=== PATIENT | male | born 1965 | race Caucasian/White ===

== ENCOUNTER 2024-03-29 02:08 | Observation (INO) | payer SELFPAY ==
[2024-03-29] VITALS (26 sets, daily range): BP systolic 132–192; BP diastolic 76–162; PULSE 90–115; RESP 10–30; TEMP 36.5–36.9; O2SAT 74–98; BMI 36.9; BMI 36.6
--- NOTE | 2024-03-29 02:14 | W.ED.SOB ---
HPI - SOB/Dyspnea General: Chief Complaint: Shortness of Breath/Dyspnea Stated Complaint: SOB Time Seen by Provider: 03/29/24 02:16 History of Present Illness: HPI Narrative: Patient presents to the ER by EMS with complaints of sudden onset shortness of breath. EMS gave him 1 DuoNeb, 1 albuterol, and put him on 2 L of oxygen he said he is breathing a bit easier. O2 sat upon arrival is 91%. Patient said he was just in [facility] last week for 2 days for the exact same thing and they released him and he took 3 more days worth of steroids. Before that event he did not have any breathing problems. 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 Patient's denying any chest pain, fevers chills, Related Data Allergies Allergy/AdvReac Type Severity Reaction Status Date / Time No Known Allergies Allergy Verified 03/29/24 02:13 Review of Systems General: Reports: 10 or more systems reviewed and unremarkable except in HPI and below Physical Exam Const: COMMON NORMALS: no acute distress, average body habitus, patient oriented x3, no limitations, healthy appearing, alert and well nourished HENMT: COMMON NORMALS: normocephalic, atraumatic, hearing grossly normal bilaterally, external ears normal, Normal external nose present and moist oral mucous membranes HEAD & SCALP: normocephalic and atraumatic NOSE: Normal external nose present EXTERNAL EAR: Yes external ears normal Neck/C-Spine: COMMON NORMALS: no JVD Chest: COMMONS NORMALS: normal inspection of the chest and normal palpation of entire chest wall Resp: COMMON NORMALS: normal respiratory effort, No retractions and No use of accessory muscles; negative for clear to auscultation bilaterally (Tachypneic diffuse bilateral wheezing) AUSCULTATION: not clear to auscultation bilaterally (Tachypneic diffuse bilateral wheezing) Cardio: COMMON NORMALS: no JVD, regular rate, regular rhythm, S1 normal heart sound present, S2 normal heart sound present, No gallops present (Cardio), No clicks present (Cardio), No murmurs present (Cardio) and No rub (Cardio) RATE: regular rate RHYTHM: regular rhythm HEART SOUNDS: S1 normal heart sound present and S2 normal heart sound present GI: COMMON NORMALS: Normal to inspection, nondistended, normoactive bowel sounds present, Soft to palpation, non-tender, No hepatosplenomegaly present and no masses PALPATION: Yes Soft to palpation and Yes No hepatosplenomegaly present Neuro: COMMON NORMALS: patient oriented x3 SENSORIUM/ORIENTATION: Yes alert Course Vital Signs: Vital signs: Vital Signs Temperature 98.1 F 03/29/24 02:09 Pulse Rate 111 H 03/29/24 03:45 Respiratory Rate 26 H 03/29/24 02:29 Blood Pressure 192/162 03/29/24 02:09 Pulse Oximetry 96 03/29/24 03:45 Oxygen Delivery Me thod Nasal Cannula 03/29/24 02:09 Oxygen Flow Rate 2 03/29/24 02:23 Fraction of Inspir ed Oxygen 35 03/29/24 03:45 MDM - SOB/Dyspnea Medical Decision Making White blood cell 17,000, ABG pH 7.34 pCO2 51, pO2 70.9, bicarb 27.4, metabolic panel unremarkable troponin delta of 2, negative for tijerina influenza and RSV, chest x-ray negative, patient very anxious has to be put on BiPAP and then had a panic attack was given 2 mg of Ativan. Appeared to be doing somewhat better however when he got up to use the restroom walked across the ruby and came back off of oxygen his saturation dropped all the way down to 73% and he becomes a little significantly more anxious. Dr. Robledo was consulted who agreed to place patient inpatient we will get a stat echo, CTA of the chest and BNP. Medical Records I reviewed the patient's medical records. Lab Data I reviewed the patient's lab results. 03/29/24 02:20 03/29/24 02:20 Labs/Radiology: Radiology Impressions Chest X-Ray 03/29/24 02:46 IMPRESSION: No acute findings. Laboratory Results WBC 17.06 10^3/uL (3.29-11.43) H 03/29/24 02:20 RBC 5.23 10^6/uL (3.85-5.65) 03/29/24 02:20 Hgb 16.00 g/dL (11.27-16.99) 03/29/24 02:20 Hct 47.2 % (37-53) 03/29/24 02:20 MCV 90.2 fl (82-101) 03/29/24 02:20 MCH 30.6 pg (27-33) 03/29/24 02:20 MCHC 33.9 g/dL (30-55) 03/29/24 02:20 RDW 12.2 % (12.1-15.1) 03/29/24 02:20 Plt Count 331 10^3/cmm (157-399) 03/29/24 02:20 MPV 10.0 fL (7.4-10.4) 03/29/24 02:20 Neut % (Auto) 61.1 % 03/29/24 02:20 Lymph % (Auto) 22.0 % 03/29/24 02:20 [place] % (Auto) 10.2 % 03/29/24 02:20 Eos % (Auto) 5.5 % 03/29/24 02:20 Baso % (Auto) 0.8 % 03/29/24 02:20 Neut # (Auto) 10.43 10^3/uL (1.8-7.7) H 03/29/24 02:20 Lymph # (Auto) 3.8 10^3/uL (0.8-4.8) 03/29/24 02:20 [place] # (Auto) 1.7 10^3/uL (0.2-0.9) H 03/29/24 02:20 Eos # (Auto) 0.9 10^3/uL (0.0-0.8) H 03/29/24 02:20 Baso # (Auto) 0.1 10^3/uL (0.0-0.1) 03/29/24 02:20 Nucleated RBC % (auto) 0 % 03/29/24 02:20 Nucleated RBCs # 0.0 /100WBC 03/29/24 02:20 D-Dimer 0.58 ug/mLFEU (0-0.59) 03/29/24 02:20 Specimen Type Arterial 03/29/24 02:27 Sample Site Radial, right 03/29/24 02:27 ABG pH 7.34 (7.35-7.45) L 03/29/24 02:27 ABG pCO2 51.2 mmHg (35-45) H 03/29/24 02:27 ABG pO2 70.9 mmHg (80.0-100.0) L 03/29/24 02:27 ABG PO2/FiO2 Ratio 253 03/29/24 02:27 ABG HCO3 27.4 mmol/L (22-26) H 03/29/24 02:27 ABG O2 Saturation 93.3 03/29/24 02:27 ABG Base Excess 0.5 mmol/L (-2.0-2.0) 03/29/24 02:27 Richar Test Pos 03/29/24 02:27 A-a O2 Gradient 8.8 mmHg (5-10) 03/29/24 02:27 Hematocrit 50.0 % (42-52) 03/29/24 02:27 Hgb O2 Saturation 92.6 % (95-100) L 03/29/24 02:27 Carboxyhemoglobin 0.6 %THgb (0.4-20.1) 03/29/24 02:27 Methemoglobin 0.2 % (0.4-1.5) L 03/29/24 02:27 Total Hemoglobin 16.3 g/dL (14-18) 03/29/24 02:27 Sodium 143.0 mmol/L (131-143) 03/29/24 02:27 Potassium 3.9 mmol/L (3.5-5.0) 03/29/24 02:27 Glucose 139.0 mg/dL (70-115) H 03/29/24 02:27 Ionized Calcium 1.2 mmol/L (1.1-1.4) 03/29/24 02:27 O2 Delivery Device Nc 03/29/24 02:27 O2 Liters/Min 2.0 % 03/29/24 02:27 FiO2 28.0 % 03/29/24 02:27 It Project Coordinator ID [id number] 03/29/24 02:27 Sodium 142 mmol/L (136-145) 03/29/24 02:20 Potassium 4.3 mmol/L (3.5-5.1) 03/29/24 02:20 Chloride 104 mmol/L (98-107) 03/29/24 02:20 Carbon Dioxide 23 mmol/L (22-29) 03/29/24 02:20 Anion Gap 19.3 (5-19) H 03/29/24 02:20 BUN 16 mg/dL (6-20) 03/29/24 02:20 Creatinine 0.7 mg/dL (0.7-1.2) 03/29/24 02:20 GFR Calculation 116.2 mL/min (90-130) 03/29/24 02:20 Glucose 148 mg/dL (65-115) H 03/29/24 02:20 Calculated Osmolality 298 mOsm/kg (285-295) H 03/29/24 02:20 Lactic Acid 1.8 mmol/L (0.5-2.2) 03/29/24 02:20 Calcium 9.1 mg/dL (8.5-10.5) 03/29/24 02:20 Total Bilirubin 0.3 mg/dL (0.15-1.2) 03/29/24 02:20 AST 25 U/L (0-40) 03/29/24 02:20 ALT 49 U/L (0-41) H 03/29/24 02:20 Alkaline Phosphatase 79 U/L (40-130) 03/29/24 02:20 Troponin T Baseline 15 ng/L (0-15) 03/29/24 02:20 Troponin T 120 Minute 12.65 ng/L (0-15) 03/29/24 04:05 Delta Troponin T -2.35 ABS# (0-10) L 03/29/24 04:05 Total Protein 7.3 g/dL (6.6-8.7) 03/29/24 02:20 Albumin 4.2 g/dL (3.5-5.2) 03/29/24 02:20 Globulin 3.1 g/dL (1.3-4.6) 03/29/24 02:20 Procalcitonin 0.04 ng/mL (0-0.5) 03/29/24 02:20 Coronavirus (PCR) Negative (Negative) 03/29/24 02:30 Influenza A (PCR) Negative (Negative) 03/29/24 02:30 Influenza Type B (PCR) Negative (Negative) 03/29/24 02:30 RSV (PCR) Negative (Negative) 03/29/24 02:30 All radiology interpretation(s) finalized by discharge Discharge Plan Discharge Patient Disposition: Admitted As Inpatient Clinical Impression: Acute hypoxic respiratory failure, Anxiety, Diabetes Condition: Stable Coding Level of Care Code ED Educational Technician for Shar Morgan
[2024-03-29] MEDS: albuterol 2.5 mg/3 mL Neb INHALATION (02:19)
[2024-03-29 02:26] LABS: Basophils # 0.1 10^3/uL (0.0-0.1); Basophils % 0.8 %; Eosinophils # 0.9 10^3/uL (0.0-0.8); Eosinophils % 5.5 %; Hematocrit 47.2 % (37-53); Lymphocytes # 3.8 10^3/uL (0.8-4.8); Mean Corpuscular HGB Conc 33.9 g/dL (30-55); Mean Corpuscular Hemoglobin 30.6 pg (27-33); Mean Corpuscular Volume 90.2 fl (82-101); Monocytes # 1.7 10^3/uL (0.2-0.9); Monocytes % 10.2 %; Neutrophils # 10.43 10^3/uL (1.8-7.7); Neutrophils % 61.1 %; Nucleated Red Blood Cells % 0 %; Platelet Count 331 10^3/cmm (157-399); Red Blood Count 5.23 10^6/uL (3.85-5.65); Red Cell Distribution Width 12.2 % (12.1-15.1); White Blood Count 17.06 10^3/uL (3.29-11.43)
--- NOTE | 2024-03-29 02:29 | ECG_ITS ---
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 Measurements Intervals [place] Rate: 103 P: 0 NE: 0 QRS: 62 QRSD: 91 T: 70 QT: 315 QTc: 413 Interpretive Statements ATRIAL FIBRILLATION WITH RAPID VENTRICULAR RESPONSE No previous ECG available for comparison Electronically Signed On 03-30-2024 09:34:18 FOOD PRODUCTS TESTER by Marc Jang M.D. [email or web address]
[2024-03-29 02:33] LABS: ABG PCO2 51.2 mmHg (35-45); ABG PH Result 7.34 (7.35-7.45); Base Excess ABG 0.5 mmol/L (-2.0-2.0); Blood Gas Allen Test Pos; Blood Gas Sample Type Arterial; Carboxyhemoglobin 0.6 %THgb (0.4-20.1); HCO3 ABG 27.4 mmol/L (22-26); HGB O2 Sat 92.6 % (95-100); Ionized Calcium Level - ABG 1.2 mmol/L (1.1-1.4); Methemoglobin 0.2 % (0.4-1.5); Oxygen Saturation ABG 93.3; PO2 ABG 70.9 mmHg (80.0-100.0); Potassium Level - ABG 3.9 mmol/L (3.5-5.0); Total Hemoglobin 16.3 g/dL (14-18)
[2024-03-29 02:35] LABS: Alveolar-Arterial Oxygen Gradi 8.8 mmHg (5-10); Blood Gas Operator Identificat 600455; Blood Gas Sample Site Radial, right; Oxygen Device NC; PO2 FiO2 Ratio Arterial Blood 253
[2024-03-29] MEDS: hyDRALAzine 20 mg/mL INJ 1 mL IVP (02:37)
[2024-03-29] MEDS: benzonatate 100 mg Capsule 200 MG PO (02:37)
[2024-03-29 02:43] LABS: D Dimer 0.58 ug/mLFEU (0-0.59)
[2024-03-29 02:44] LABS: Lactic Sepsis W/Reflex 1.8 mmol/L (0.5-2.2)
[2024-03-29 02:46] LABS: Troponin(5th) Baseline 15 ng/L (0-15)
--- NOTE | 2024-03-29 02:46 | XRR_ITS ---
PROCEDURE INFORMATION: Exam: XR Chest Exam date and time: 03/29/2024 2:51 AM Age: 59 years old Clinical indication: Cough and dyspnea; Additional info: Cough dyspnea TECHNIQUE: Imaging protocol: Radiologic exam of the chest. Views: 1 view. COMPARISON: No relevant prior studies available. FINDINGS: Lungs: Unremarkable. No consolidation. Pleural spaces: Unremarkable. No pleural effusion. No pneumothorax. Heart/Mediastinum: Unremarkable. No cardiomegaly. Bones/joints: Unremarkable. XR/XR chest 1V portable [id number] IMPRESSION: No acute findings.
[2024-03-29 02:48] LABS: Alanine Aminotransferase 49 U/L (0-41); Albumin Level 4.2 g/dL (3.5-5.2); Alkaline Phosphatase 79 U/L (40-130); Aspartate Amino Transferase 25 U/L (0-40); Blood Urea Nitrogen 16 mg/dL (6-20); Calcium 9.1 mg/dL (8.5-10.5); Carbon Dioxide 23 mmol/L (22-29); Chloride 104 mmol/L (98-107); Globulin 3.1 g/dL (1.3-4.6); Glomerular Filtration Rate 116.2 mL/min (90-130); Glucose 148 mg/dL (65-115); Osmolality Calculated 298 mOsm/kg (285-295); Sodium 142 mmol/L (136-145); Total Bilirubin 0.3 mg/dL (0.15-1.2); Total Protein 7.3 g/dL (6.6-8.7)
[2024-03-29 02:50] LABS: Anion Gap 19.3 (5-19); Potassium 4.3 mmol/L (3.5-5.1)
[2024-03-29 02:55] LABS: Procalcitonin 0.04 ng/mL (0-0.5)
[2024-03-29 03:13] LABS: Covid PCR NEGATIVE (Negative); Influenza A NEGATIVE (Negative); Influenza B NEGATIVE (Negative); Respiratory Syncytial Virus Ce NEGATIVE (Negative)
[2024-03-29] MEDS: methylPREDNISolone sod succ 125 mg/2 mL INJ IVP (03:35)
--- NOTE | 2024-03-29 04:11 | ECG_ITS ---
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 Measurements Intervals [place] Rate: 118 P: 53 [place]: 136 QRS: 59 QRSD: 85 T: 67 QT: 309 QTc: 433 Interpretive Statements SINUS TACHYCARDIA POSSIBLE LEFT ATRIAL ENLARGEMENT [-0.1mV P-WAVE IN V1/V2] MINIMAL ST DEPRESSION [0.025+ mV ST DEPRESSION] ABNORMAL RHYTHM ECG No previous ECG available for comparison Electronically Signed On 03-30-2024 22:11:19 CLERK CHECKER by Marc Jang M.D. [id number]
[2024-03-29] MEDS: LORazepam 2 mg/mL INJ 1 mL IVP (04:16)
[2024-03-29 04:32] LABS: Troponin 5 2HR 12.65 ng/L (0-15)
[2024-03-29 04:38] LABS: Troponin 5 2HR Delta -2.35 ABS# (0-10)
--- NOTE | 2024-03-29 05:14 | CTR_ITS ---
PROCEDURE INFORMATION: Exam: CTA Chest With Contrast Exam date and time: 03/29/2024 5:49 AM Age: 59 years old Clinical indication: Shortness of breath; Additional info: Dyspnea TECHNIQUE: Imaging protocol: Computed tomographic angiography of the chest with contrast. Exam focused on the arteries. 3D rendering (Not supervised by radiologist): MIP and/or 3D reconstructed images were created by the technologist. Radiation optimization: All CT scans at this facility use at least one of these dose optimization techniques: automated exposure control; mA and/or kV adjustment per patient size (includes targeted exams where dose is matched to clinical indication); or iterative reconstruction. Contrast material: OMNI 350; Contrast volume: 87 ml; Contrast route: INTRAVENOUS (IV); COMPARISON: CR (CHEST, ) 03/29/2024 2:51 AM RADIATION DOSE METRICS: Total DLP (mGy-cm): 1611.48 FINDINGS: Pulmonary arteries: Normal. No pulmonary emboli. Aorta: Unremarkable. No aortic aneurysm. No aortic dissection. Lungs: Few regions of central ground-glass/tree-in-bud nodularity is seen in a bronchovascular distribution particularly of the basilar lobes and right middle lobe. Pleural spaces: Unremarkable. No pneumothorax. No pleural effusion. Heart: Unremarkable. No cardiomegaly. No pericardial effusion. Coronary arteries: Moderate coronary calcified atherosclerotic disease. Lymph nodes: Unremarkable. No enlarged lymph nodes. Liver: Diffuse hepatic steatosis. Bones/joints: Unremarkable. No acute fracture. Soft tissues: Unremarkable. CT/CT angio chest PE protcl [id number] IMPRESSION: 1. No pulmonary embolus. 2. Nonspecific ground-glass as above which likely reflects atypical infectious/inflammatory etiology
[2024-03-29 05:42] LABS: NT Pro B Type Natriuretic Pept 72 pg/mL (0-125)
--- NOTE | 2024-03-29 06:04 | P.HP_ITS ---
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 Presenting back with chief complaint of worsening shortness of breath. Patient is endorsing that he is extremely short of breath at rest and on exertion. Not endorsing chest pain, no recent fever nausea vomiting or diarrhea. In the ER he was tachycardic, secondary to increased work of breathing he was put on BiPAP, his CBC BMP unremarkable, D-dimer is not high however CT chest has been requested along echo. EKG showing sinus tachycardia patient has received albuterol by the EMS he was brought in on 2 L of nasal cannula he was saturating 91% however on ambulation his O2 saturation dropped to 73% then he was put on BiPAP. He is not complaining active chest pain, Rester panel is negative, Second EKG showing sinus tachycardia however there was concern for atrial fibrillation on the first 1, however I am able to see and locate P waves on the first EKG as well chest x-ray unremarkable Review of Systems 2 Const: Denies: fever(s) Eyes: Denies: change in vision ENMT: Denies: throat pain Card: Denies: chest pain Resp: Reports: dyspnea GI: Denies: abdominal pain Medications/Allergies Allergies Allergy/AdvReac Type Severity Reaction Status Date / Time No Known Allergies Allergy Verified 03/29/24 02:13 PFSH Acute 2 PFSH: Medical History Diabetes Vitals/I&O/Wt Last Vital Signs Temp 98.1 F 03/29/24 02:09 Pulse 115 H 03/29/24 05:30 Resp 18 03/29/24 05:30 BP 149/119 03/29/24 05:30 Pulse Ox 89 L 03/29/24 05:30 O2 Del Method BiPAP 03/29/24 05:30 O2 Flow Rate 3 03/29/24 03:43 FiO2 35 03/29/24 03:45 03/28/24 03/28/24 03/29/24 14:59 22:59 06:59 Intake Total 0 / 0 Balance 0 / 0 Weight last 48 hrs Weight 113.398 kg Physical Exam 2 Narrative: Morbidly obese male Anticipating Currently on BiPAP Tachycardic and hypertensive No sign of fluid overload Distended nontender abdomen Able to move his extremities Pupils are reactive to light Nonfocal neuroexam S1, S2 sinus tachycardia No active chest pain Data 03/29/24 02:20 03/29/24 02:20 A&P Assessment and plan (1) Anxiety: (2) Acute hypoxic respiratory failure: Plan Increased work of breathing with hypoxia Acute hypoxia Currently on BiPAP to decrease work of breathing D-dimer unremarkable requested CTA chest and echo Respiratory panel negative, EKG showing sinus tachycardia Chest x-ray unremarkable Patient was on prednisone at home was recently discharged to [facility], requesting records Admit to [facility] Start diet once he is more calm, he also received lorazepam in the ER, currently drowsy falling asleep, ABG is not showing hypercapnia Full code Consistent carb diet with insulin sliding scale check A1c level Check drug screen, 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
[2024-03-29] MEDS: iohexol 350 mg/mL 500 mL Btl (per mL) IV ×2 (06:26→06:27)
--- NOTE | 2024-03-29 06:59 | USCV_ITS ---
Al Ewing Age: 59 Gender: M : 1965 Exam Date: 03/29/2024 14:19 Ordering Phys: Keaton Robledo MD Technologist: Exam Location: [facility] [place] Indication: chf cp BP: 137 / 80 HR: 102 Rhythm: Sinus Technical Quality: Adequate MEASUREMENTS (Male / Female) Normal Values 2D ECHO LV Diastolic Diameter PLAX 4.2 cm 4.2 - 5.9 / 3.9 - 5.3 cm IVS Diastolic Thickness 1.7 cm 0.6 - 1.0 / 0.6 - 0.9 cm IVS Systolic Thickness 2.0 cm LVPW Diastolic Thickness 1.6 cm 0.6 - 1.0 / 0.6 - 0.9 cm LVPW Systolic Thickness 1.9 cm LVOT Diameter 2.1 cm LV Ejection Fraction 2D Teich 64.6 % LV Ejection Fraction MOD 4C 59.3 % LV Ejection Fraction MOD 2C 39.7 % LV Ejection Fraction 2C AL 40.3 % LA Diameter 3.3 cm RA Systolic Volume 4C AL 31.7 ml RA Systolic Volume 4C MOD 31.3 ml LA Sys Volume AL 40.2 cm cubed LA Sys Volume Index AL 18.5 cm cubed/m squared Aorta at Sinotubular Diameter 3.5 cm M-MODE LA Ao Ratio MM 1.1 AV Cusp Separation MM 2.2 cm DOPPLER AV Peak Velocity 187.0 cm/s LVOT Peak Velocity 100.0 cm/s AV Area Cont Eq vti 1.9 cm squared AV Area Cont Eq pk 1.8 cm squared MV Peak Velocity 116.0 cm/s MV Area PHT 2.0 cm squared Mitral E to A Ratio 0.8 TV Peak Velocity 119.5 cm/s TR Peak Velocity 190.0 cm/s TR Peak Gradient 14.4 mmHg TV Peak E Velocity 78.0 cm/s PV Peak Velocity 95.0 cm/s FINDINGS Left Ventricle Left ventricle is normal in size. LV systolic function is normal with EF of 55-60%. No regional wall motion abnormalities are seen. Grade 1 diastolic dysfunction Right Ventricle Grossly normal Right Atrium Normal in size Left Atrium Normal in size Mitral Valve Structurally normal mitral valve. Trace mitral regurgitation Aortic Valve Structurally normal aortic valve. No significant stenosis or regurgitation. Tricuspid Valve Insufficient TR jet to calculate RVSP Pulmonic Valve Not well visualized Pericardium Normal Aorta Grossly normal IVC Not well visualized CONCLUSIONS LV systolic function is normal with EF 55 to 60%. Grade 1 diastolic dysfunction. Trace mitral regurgitation. No comparison studies are available. Marc Jang MD (Electronically Signed) Final Date: 30 March 2024 07:47 S
[2024-03-29] MEDS: enoxaparin 40 mg/0.4 mL Syringe SUBCUT (07:51)
--- NOTE | 2024-03-29 07:56 | PC.NURSE ---
glucose via FS: 187 @[id number]
[2024-03-29 08:00] LABS: Glucose Point of Care 187 mg/dL (70-110)
[2024-03-29 08:04] LABS: Thyroid Stimulating Hormone 1.49 uIU/mL (0.27-4.20)
--- NOTE | 2024-03-29 08:11 | ECG_ITS ---
[facility] Test Date: 2024-03-29 Pat Name: Al Ewing Department: Room: 259 Gender: Male Distribution Estimator: : 1965 Requested By: Mike Trujillo Order Number: [id number] Awilda MD: Marc Jang M.D. Measurements Intervals [place] Rate: 107 P: 0 [place]: 0 QRS: 62 QRSD: 84 T: 68 QT: 335 QTc: 447 Interpretive Statements ATRIAL FIBRILLATION WITH RAPID VENTRICULAR RESPONSE Compared to ECG 03/29/2024 06:38:42 Sinus tachycardia no longer present ST (T wave) deviation no longer present Electronically Signed On 03-30-2024 22:11:15 DATAPOWER CONSULTANT by Marc Jang M.D. [id number]
[2024-03-29 08:14] LABS: Amphetamines Screen Urine Negative (Negative); Barbiturates Screen Urine Negative (Negative); Benzodiazepines Screen Urine Positive (Negative); Cocaine Screen Urine Negative (Negative); Opiate Screen Urine Negative (Negative); PCP Screen Urine Negative (Negative); THC Screen Urine Negative (Negative)
[2024-03-29] MEDS: insulin lispro 100 unit/1 mL SUBCUT ×3 (08:19→18:24)
[2024-03-29] MEDS: doxycycline 100 mg Tablet PO ×2 (08:19→18:24)
[2024-03-29] MEDS: sennosides-docusate Tablet 1 TAB PO (08:19)
[2024-03-29] MEDS: lisinopril 20 mg Tablet PO (08:19)
[2024-03-29] MEDS: carvedilol 12.5 mg Tablet PO ×2 (08:19→18:24)
[2024-03-29] MEDS: ipratropium 0.5 mg/2.5 mL Neb INHALATION (08:28)
[2024-03-29] MEDS: budesonide 0.5 mg/2 mL Neb INHALATION ×2 (08:28→20:13)
[2024-03-29] MEDS: levalbuterol 1.25 mg/3 mL Neb INHALATION (08:28)
[2024-03-29 10:24] LABS: Troponin 5 6HR 17.19 ng/L (0-15); Troponin 5 6HR Delta 2.19 ng/L (0-12)
[2024-03-29] MEDS: predniSONE 20 mg Tablet 40 MG PO (10:56)
[2024-03-29] MEDS: loratadine 10 mg Tablet PO (10:56)
--- NOTE | 2024-03-29 11:49 | W.PM.EVENTAC ---
Event Note Event Note: History and physical reviewed. Patient presents with acute hypercarbic respiratory failure and acute likely COPD exacerbation. Placed on steroids. DuoNeb every 4 hours, budesonide twice daily. Doxycycline p.o. Reevaluate off BiPAP when appropriate. Try to get records from [facility] regarding her recent hospital stay. Cannot rule out eosinophilic pneumonia considering peripheral eosinophil count is slightly high. Will consider this as well, depending upon his clinical course. Add loratadine, Singulair. Change NASIR inhibitor to ARB.
[2024-03-29 12:06] LABS: Glucose Point of Care 179 mg/dL (70-110)
[2024-03-29] MEDS: ipratropium-albuterol 3 mL Neb INHALATION ×2 (15:24→20:13)
[2024-03-29 17:54] LABS: Glucose Point of Care 218 mg/dL (70-110)
[2024-03-29] MEDS: atorvastatin 40 mg Tablet 20 MG PO (18:24)
[2024-03-29] MEDS: montelukast sodium 10 mg Tablet PO (18:24)
[2024-03-29 21:35] LABS: Glucose Point of Care 185 mg/dL (70-110)
[2024-03-30] VITALS (9 sets, daily range): BP systolic 104–133; BP diastolic 65–79; PULSE 71–88; RESP 16–18; TEMP 36.5–36.6; O2SAT 93–97
[2024-03-30] MEDS: ipratropium-albuterol 3 mL Neb INHALATION ×3 (01:01→08:23)
[2024-03-30 06:34] LABS: Basophils % 0.2 %; Eosinophils # 0.3 10^3/uL (0.0-0.8); Hematocrit 44.3 % (37-53); Lymphocytes # 2.9 10^3/uL (0.8-4.8); Lymphocytes % 17.4 %; Mean Corpuscular HGB Conc 32.3 g/dL (30-55); Mean Corpuscular Hemoglobin 29.9 pg (27-33); Mean Corpuscular Volume 92.5 fl (82-101); Mean Platelet Volume 10.5 fL (7.4-10.4); Monocytes # 1.6 10^3/uL (0.2-0.9); Monocytes % 9.2 %; Neutrophils # 11.89 10^3/uL (1.8-7.7); Neutrophils % 70.6 %; Nucleated Red Blood Cells % 0 %; Platelet Count 310 10^3/cmm (157-399); Red Blood Count 4.79 10^6/uL (3.85-5.65); Red Cell Distribution Width 12.5 % (12.1-15.1); White Blood Count 16.85 10^3/uL (3.29-11.43)
[2024-03-30 06:39] LABS: Glucose Point of Care 144 mg/dL (70-110)
[2024-03-30 06:51] LABS: Anion Gap 15.5 (5-19); Blood Urea Nitrogen 16 mg/dL (6-20); C Reactive Protein 10.1 mg/L (0.0-4.9); Calcium 9.1 mg/dL (8.5-10.5); Carbon Dioxide 25 mmol/L (22-29); Chloride 98 mmol/L (98-107); Creatinine Clr Calc Pharmacy 203.5935; Glomerular Filtration Rate 171.4 mL/min (90-130); Glucose 143 mg/dL (65-115); Magnesium 2.2 mg/dL (1.7-2.3); Osmolality Calculated 284 mOsm/kg (285-295); Potassium 3.5 mmol/L (3.5-5.1); Sodium 135 mmol/L (136-145)
[2024-03-30] MEDS: budesonide 0.5 mg/2 mL Neb INHALATION (08:23)
[2024-03-30] MEDS: enoxaparin 40 mg/0.4 mL Syringe SUBCUT (08:34)
[2024-03-30] MEDS: insulin lispro 100 unit/1 mL SUBCUT (08:34)
[2024-03-30] MEDS: loratadine 10 mg Tablet PO (08:35)
[2024-03-30] MEDS: losartan 50 mg Tablet PO (08:35)
[2024-03-30] MEDS: predniSONE 20 mg Tablet 40 MG PO (08:35)
[2024-03-30] MEDS: doxycycline 100 mg Tablet PO (08:35)
[2024-03-30] MEDS: carvedilol 12.5 mg Tablet PO (08:36)
[2024-03-30] MEDS: sennosides-docusate Tablet 1 TAB PO (08:36)
--- NOTE | 2024-03-30 10:27 | PM.DCS ---
Discharge Providers Date of Admission: 03/29/24 05:19 Date of Discharge: March 30, 2024 Attending Provider at Admission: Keaton Robledo MD Attending Provider at Discharge: Kaushik Lepe MD Diagnoses at Discharge Discharge Diagnosis (1) Anxiety: Status: Acute (2) Acute hypoxic respiratory failure: Status: Acute Reason for Visit Reason for Visit: SOB Hospital Course Hospital Course Patient is a 59-year-old white male who presented with wheezing and shortness of breath. He required some BiPAP for respiratory support. He did recently been hospitalized at [facility] for similar episode. He received IV steroids, breathing treatments, doxycycline. An echocardiogram was performed which was largely normal. Chest x-ray showed no infiltrate. CTA demonstrated no pulmonary embolism. BNP was not elevated. Troponin did not show any concerning trend. During his hospital stay he showed significant improvement, weaning to room air with a saturation of 93% on March 30 with no shortness of breath. Wheezing was much less. It was thought he could go home on an extended prednisone taper, have follow-up with his primary and pulmonary. His benazepril was changed to losartan. He will finish up a course of doxycycline. A prescription for nebulizer, DuoNeb, budesonide was initiated. He was able to ask questions and agreed with the plan. As he had gotten a CTA, he can start his metformin on April 01. Physical Exam Narrative: General Exam no distress Neck is supple Cardiovascular regular rate and rhythm Lungs clear Abdomen soft Extremities no cyanosis clubbing or edema Discharge Data Studies Completed and Pending Completed Studies During Hospitalization Category Date Time Status CT angio chest PE protcl [id number] Stat Cat Scan 03/29/24 05:14 Completed XR chest 1V portable [id number] Stat Exams 03/29/24 02:46 Completed CV. echo complete* [id number] Routine Ultrasound 03/29/24 06:59 Completed Pending at discharge Category Date Time Status CA echo doppler complete Stat Exams 03/29/24 05:15 Stop Req Sputum Culture and Gram Stain Stat Lab 03/29/24 12:50 Received Radiology Impressions Chest X-Ray 03/29/24 02:46 IMPRESSION: No acute findings. Chest CTA 03/29/24 05:14 IMPRESSION: 1. No pulmonary embolus. 2. Nonspecific ground-glass as above which likely reflects atypical infectious/inflammatory etiology Laboratory Results WBC 16.85 10^3/uL (3.29-11.43) H 03/30/24 05:23 RBC 4.79 10^6/uL (3.85-5.65) 03/30/24 05:23 Hgb 14.30 g/dL (11.27-16.99) 03/30/24 05:23 Hct 44.3 % (37-53) 03/30/24 05:23 MCV 92.5 fl (82-101) 03/30/24 05:23 MCH 29.9 pg (27-33) 03/30/24 05:23 MCHC 32.3 g/dL (30-55) 03/30/24 05:23 RDW 12.5 % (12.1-15.1) 03/30/24 05:23 Plt Count 310 10^3/cmm (157-399) 03/30/24 05:23 MPV 10.5 fL (7.4-10.4) H 03/30/24 05:23 Neut % (Auto) 70.6 % 03/30/24 05:23 Lymph % (Auto) 17.4 % 03/30/24 05:23 Stearns % (Auto) 9.2 % 03/30/24 05:23 Eos % (Auto) 2.0 % 03/30/24 05:23 Baso % (Auto) 0.2 % 03/30/24 05:23 Neut # (Auto) 11.89 10^3/uL (1.8-7.7) H 03/30/24 05:23 Lymph # (Auto) 2.9 10^3/uL (0.8-4.8) 03/30/24 05:23 Stearns # (Auto) 1.6 10^3/uL (0.2-0.9) H 03/30/24 05:23 Eos # (Auto) 0.3 10^3/uL (0.0-0.8) 03/30/24 05:23 Baso # (Auto) 0.0 10^3/uL (0.0-0.1) 03/30/24 05:23 Nucleated RBC % (auto) 0 % 03/30/24 05:23 Nucleated RBCs # 0.0 /100WBC 03/30/24 05:23 D-Dimer 0.58 ug/mLFEU (0-0.59) 03/29/24 02:20 Specimen Type Arterial 03/29/24 02:27 Sample Site Radial, right 03/29/24 02:27 ABG pH 7.34 (7.35-7.45) L 03/29/24 02:27 ABG pCO2 51.2 mmHg (35-45) H 03/29/24 02:27 ABG pO2 70.9 mmHg (80.0-100.0) L 03/29/24 02:27 ABG PO2/FiO2 Ratio 253 03/29/24 02:27 ABG HCO3 27.4 mmol/L (22-26) H 03/29/24 02:27 ABG O2 Saturation 93.3 03/29/24 02:27 ABG Base Excess 0.5 mmol/L (-2.0-2.0) 03/29/24 02:27 Richar Test Pos 03/29/24 02:27 A-a O2 Gradient 8.8 mmHg (5-10) 03/29/24 02:27 Hematocrit 50.0 % (42-52) 03/29/24 02:27 Hgb O2 Saturation 92.6 % (95-100) L 03/29/24 02:27 Carboxyhemoglobin 0.6 %THgb (0.4-20.1) 03/29/24 02:27 Methemoglobin 0.2 % (0.4-1.5) L 03/29/24 02:27 Total Hemoglobin 16.3 g/dL (14-18) 03/29/24 02:27 Sodium 143.0 mmol/L (131-143) 03/29/24 02:27 Potassium 3.9 mmol/L (3.5-5.0) 03/29/24 02:27 Glucose 139.0 mg/dL (70-115) H 03/29/24 02:27 Ionized Calcium 1.2 mmol/L (1.1-1.4) 03/29/24 02:27 O2 Delivery Device Nc 03/29/24 02:27 O2 Liters/Min 2.0 % 03/29/24 02:27 FiO2 28.0 % 03/29/24 02:27 Intensive Care Unit Nurse ID [id number] 03/29/24 02:27 Sodium 135 mmol/L (136-145) L 03/30/24 05:23 Potassium 3.5 mmol/L (3.5-5.1) 03/30/24 05:23 Chloride 98 mmol/L (98-107) 03/30/24 05:23 Carbon Dioxide 25 mmol/L (22-29) 03/30/24 05:23 Anion Gap 15.5 (5-19) 03/30/24 05:23 BUN 16 mg/dL (6-20) 03/30/24 05:23 Creatinine 0.5 mg/dL (0.7-1.2) L 03/30/24 05:23 GFR Calculation 171.4 mL/min (90-130) H 03/30/24 05:23 Glucose 143 mg/dL (65-115) H 03/30/24 05:23 POC Glucose 144 mg/dL (70-110) H 03/30/24 06:32 Calculated Osmolality 284 mOsm/kg (285-295) L 03/30/24 05:23 Lactic Acid 1.8 mmol/L (0.5-2.2) 03/29/24 02:20 Calcium 9.1 mg/dL (8.5-10.5) 03/30/24 05:23 Magnesium 2.2 mg/dL (1.7-2.3) 03/30/24 05:23 Total Bilirubin 0.3 mg/dL (0.15-1.2) 03/29/24 02:20 AST 25 U/L (0-40) 03/29/24 02:20 ALT 49 U/L (0-41) H 03/29/24 02:20 Alkaline Phosphatase 79 U/L (40-130) 03/29/24 02:20 Troponin T Baseline 15 ng/L (0-15) 03/29/24 02:20 Troponin T 120 Minute 12.65 ng/L (0-15) 03/29/24 04:05 Delta Troponin T -2.35 ABS# (0-10) L 03/29/24 04:05 Troponin T Hi Sens 6Hr 17.19 ng/L (0-15) H 03/29/24 09:55 Troponin T Hi Sens 6Hr Delta 2.19 ng/L (0-12) 03/29/24 09:55 C-Reactive Protein 10.1 mg/L (0.0-4.9) H 03/30/24 05:23 NT-Pro-B Natriuret Pep 72 pg/mL (0-125) 03/29/24 02:20 Total Protein 7.3 g/dL (6.6-8.7) 03/29/24 02:20 Albumin 4.2 g/dL (3.5-5.2) 03/29/24 02:20 Globulin 3.1 g/dL (1.3-4.6) 03/29/24 02:20 Procalcitonin 0.04 ng/mL (0-0.5) 03/29/24 02:20 TSH 1.49 uIU/mL (0.27-4.20) 03/29/24 02:20 Urine Opiates Screen Negative ng/mL (Negative) 03/29/24 07:53 Ur Barbiturates Screen Negative ng/mL (Negative) 03/29/24 07:53 Ur Phencyclidine Scrn Negative ng/mL (Negative) 03/29/24 07:53 Ur Amphetamines Screen Negative ng/mL (Negative) 03/29/24 07:53 U Benzodiazepines Scrn Positive ng/mL (Negative) H 03/29/24 07:53 Urine Cocaine Screen Negative ng/mL (Negative) 03/29/24 07:53 U Marijuana (THC) Screen Negative ng/mL (Negative) 03/29/24 07:53 Coronavirus (PCR) Negative (Negative) 03/29/24 02:30 Influenza A (PCR) Negative (Negative) 03/29/24 02:30 Influenza Type B (PCR) Negative (Negative) 03/29/24 02:30 RSV (PCR) Negative (Negative) 03/29/24 02:30 Vitals Last Vital Signs Temp 98 F 03/30/24 04:00 Pulse 84 03/30/24 08:23 Resp 16 03/30/24 08:23 BP 104/65 03/30/24 07:20 Pulse Ox 95 03/30/24 08:23 O2 Del Method Nasal Cannula 03/30/24 08:23 O2 Flow Rate 2 03/30/24 08:23 FiO2 35 03/30/24 04:06 Discharge Plan Discharge Patient Disposition: Home Condition: Stable Prescriptions: New prednisone 10 mg tablet 10 mg PO DIRECTED Qty: 30 0RF Rx Instructions: see taper instructions doxycycline monohydrate 100 mg Tablet 100 mg PO BID Qty: 14 0RF budesonide 0.5 mg/2 mL Suspension For Nebulization 0.5 mg inhalation BID.RESPIRATORY Qty: 120 0RF losartan 50 mg Tablet 50 mg PO DAILY Qty: 30 0RF loratadine 10 mg Tablet 10 mg PO DAILY Qty: 30 0RF montelukast 10 mg Tablet 10 mg PO QPM Qty: 30 0RF ipratropium-albuterol 0.5 mg-3 mg(2.5 mg base)/3 mL solution for nebulization 3 ml inhalation QID Qty: 180 0RF albuterol sulfate [Ventolin HFA] 90 mcg/actuation HFA aerosol inhaler 1 inh inhalation Q6H PRN (Reason: shortness of breath or wheezing) Qty: 6.7 0RF Continued metformin 500 mg tablet 1,000 mg PO BID carvedilol 25 mg tablet 25 mg PO BID atorvastatin 20 mg tablet 20 mg PO QPM glipizide 5 mg tablet extended release 24hr 5 mg PO DAILY Discontinued benazepril 40 mg tablet 40 mg PO DAILY Discharge Orders: Discharge Order (Routine); Ordered 03/30/24 Ordered By: Kaushik Lepe Other Ambulatory Orders: DME: Nebulizer with Neb Kit (Order) Location: None Selected Ordered By: Kaushik Lepe Discharge Diet: Cardiac Discharge Activity: Increase activity as tolerated Patient Instructions: Opioid Safety Activity Restrictions/Additional Instructions: Avoid any smoke Take all medicine as prescribed Return for any concerns Prednisone taper is as follows, 40 mg a day for 3 days, 30 mg a day for 3 days, 20 mg a day for 3 days, 10 mg a day for 3 days then discontinue Keep follow-up with pulmonary Follow-up with primary care provider 3 to 5 days May return to work Do not take your metformin until 04/01 morning. Discharge Attestations Time Spent in Discharge Care*: greater than 30 min Quality Metrics Clinical Quality Measures [ No reported AMI, CVA or VTE this stay] Coding Level of Care Code 93972 Total time (in minutes) for Discharge: 34 Diagnoses Anxiety F41.9 Acute hypoxic respiratory failure J96.01
[2024-03-30 11:30] LABS: Glucose Point of Care 122 mg/dL (70-110)
== END 2024-03-30 12:46 | disposition home or self-care (01) ==
LOC: ER 05:19 → MEDSURG 07:30 → ER IP 10:36
PROVIDERS: Admitting Provider Internal Medicine; Emergency Provider Emergency Medicine; Visit Provider Internal Medicine
DX: J96.01 Acute respiratory failure with hypoxia (principal); F41.9 Anxiety disorder, unspecified; E11.9 Type 2 diabetes mellitus without complications
CPT/HCPCS: 0241U; 36415; 36416; 71045; 71275; 80048; 80051; 80053; 80306; 82330; 82805; 82962; 83605; 83735; 83880; 84145; 84443; 84484; 85025; 85378; 86140; 87070; 87205; 93005; 93306; 94640; 94660; 96372; 96374; 96375; 99291; G0378; J0360; J1650; J1815; J2060; J2919; J7512; J7613; J7614; J7626; J7644